=== PATIENT | female | born 1945 | race Caucasian/White ===

== ENCOUNTER 2017-02-14 13:17 | Outpatient (CLI) | payer MEDICARE, OTHER | END 2017-02-14 13:18 | disposition home or self-care (01) | DX: R07.9 Chest pain, unspecified (principal) ==

== ENCOUNTER 2017-02-18 08:43 | Outpatient (CLI) | payer MEDICARE, OTHER | END 2017-02-18 08:44 | disposition home or self-care (01) | DX: M85.89 Other specified disorders of bone density and structure, multiple sites (principal); N95.8 Other specified menopausal and perimenopausal disorders ==

== ENCOUNTER 2018-01-09 13:09 | Outpatient (CLI) | payer MEDICARE, OTHER ==
--- NOTE | 2018-01-09 16:56 | XRAY Report ---
PELVIS AND BILATERAL HIPS: 01/09/2018 HISTORY: Increased left hip pain with limited bilateral range of motion. COMPARISON: 04/06/2014 CT scan abdomen and pelvis reformatted images. FINDINGS: The hip joints are anatomically aligned bilaterally. There is no evidence of fracture or bone destruction. There is mild degenerative change of the hips with slight narrowing and acetabular spurring. Mild degenerative change of the sacroiliac joints. IMPRESSION: MILD DEGENERATIVE CHANGE OF THE HIPS WITHOUT SUPERIMPOSED ACUTE FINDINGS. TD: 01/09/2018 16:55 [facility]
== END 2018-01-09 13:10 | disposition home or self-care (01) ==
LOC: DI 13:09
PROVIDERS: ATTEND Registered Nurse
DX: M16.0 Bilateral primary osteoarthritis of hip (principal)
CPT/HCPCS: 73521

== ENCOUNTER 2018-08-11 09:05 | Outpatient (CLI) | payer MEDICARE, OTHER ==
--- NOTE | 2018-08-11 10:58 | XRAY Report ---
Reason: RT SHOULDER PAIN Procedure Date: 08/11/2018 Accession Number: [id number] / [id number] Procedure: XR - Shoulder 3 View RT CPT Code: FULL RESULT: EXAM: RIGHT SHOULDER RADIOGRAPHY EXAM DATE: 08/11/2018 09:14 AM. CLINICAL HISTORY: Right shoulder pain. COMPARISON: None. TECHNIQUE: 3 views. FINDINGS: Bones: Normal. No fracture or bone lesion. Joints: The glenohumeral and acromioclavicular joints are normal. Soft tissues: The visualized hemithorax is unremarkable. No soft tissue swelling. IMPRESSION: No fracture or dislocation. RADIA
== END 2018-08-11 09:06 | disposition home or self-care (01) ==
LOC: DI 09:05
PROVIDERS: ATTEND Nurse Practitioner Family
DX: M25.511 Pain in right shoulder (principal)

== ENCOUNTER 2019-04-19 09:34 | Outpatient (CLI) | payer MEDICARE, OTHER ==
--- NOTE | 2019-04-23 08:22 | DEXA Report ---
Reason: DISORDER OF BONE,UNSPECIFIED Procedure Date: 04/19/2019 Accession Number: [id number] / [id number] Procedure: DEX - Dexa Spine and/or Hip CPT Code: FULL RESULT: EXAM: Dexa Spine and/or Hip DATE: 04/19/2019 9:52 AM CLINICAL HISTORY: DISORDER OF BONE,UNSPECIFIED TECHNIQUE: Dual energy x-ray absorptiometry (DXA) was performed on a [employer] System. Regions measured are the AP Spine, femoral neck, and if needed forearm. COMPARISON: 02/18/2017. In accordance with the International Society for Clinical Densitometry (ISCD) guidelines, data from previous exams may be reanalyzed using current recommendations and techniques. This is done to allow a more accurate basis for comparison with the current study. FINDINGS: The data for the lumbar spine is as follows: BMD (g/cm/cm) T-SCORE Z-SCORE REGION L1 1.005 -1.0 0.9 L2 1.077 -1.0 0.9 L3 1.094 -0.9 1.1 L4 1.014 -1.6 0.4 TOTAL 1.046 -1.1 0.8 NOTE: All evaluable vertebrae are used for classification The data for the hip is as follows: BMD (g/cm/cm) T-SCORE Z-SCORE REGION Neck 0.900 -1.0 1.0 TOTAL 0.926 -0.6 1.2 NOTE: The femoral neck or total proximal femur, whichever is lowest, is used for classification. DXA RESULTS SUMMARY: Spine SCAN DATE AGE BMD CHANGE VS CHANGE VS PREVIOUS PREVIOUS % 4/19[birth year]2019 [age] 1[age]059 0.021 2.0 02/18/2017 71.8 1[age]038 * Denotes significant change at the 95% confidence level. Denotes dissimilar scan types or analysis methods. DXA RESULTS SUMMARY: Hip SCAN DATE AGE BMD CHANGE VS CHANGE VS PREVIOUS PREVIOUS % [birth year][age][birth year]2019 74.0 0[age]926 0.024 2.7 02[birth year]18[birth year]2017 71.8 0[age]902 * Denotes significant change at the 95% confidence level. Denotes dissimilar scan types or analysis methods. IMPRESSION: THE WHO CLASSIFICATION BASED ON THE INTERNATIONAL REFERENCE STANDARD IS OSTEOPENIA. THE FRACTURE RISK IS INCREASED. RECOMMENDATION: Patients with diagnosis of osteoporosis or osteopenia should have regular bone mineral density assessment. For those eligible for Medicare, routine testing is allowed once every 2 years. Testing frequency can be increased for patients who have rapidly progressing disease or for those who are receiving medical therapy to restore bone mass. COMMENT: World Health Organization (WHO) definitions for osteoporosis and osteopenia: NORMAL BMD: T-score at -1.0 or higher, fracture risk is low OSTEOPENIA BMD: T-score between -1.0 and -2.5, fracture risk is increased. OSTEOPOROSIS BMD: T-score at -2.5 or lower, fracture risk is high. National Osteoporosis Foundation recommends: 1. Obtain adequate dietary calcium (at least 1200 mg per day) and vitamin D (400-800 international units per day). 2. Participate, as appropriate, in regular weightbearing and muscle-strengthening exercise. 3. Avoid tobacco use and reduce alcohol and caffeine intake. 4. For more detailed information see the website at www.NOF.org.
== END 2019-04-19 09:35 | disposition home or self-care (01) ==
LOC: DI 09:34
PROVIDERS: ATTEND Physician Assistant
DX: M85.89 Other specified disorders of bone density and structure, multiple sites (principal)
CPT/HCPCS: 77080

== ENCOUNTER 2023-05-25 15:03 | Outpatient (CLI) | payer MEDICARE, OTHER ==
--- NOTE | 2023-05-25 15:45 | DEXA Report ---
PROCEDURE: Dexa Spine and/or Hip INDICATIONS: OSTEOPENIA TECHNIQUE: Dual energy x-ray absorptiometry (DXA) was performed on a [employer] System. Regions measur ed are the AP Spine, femoral neck, and if needed forearm. COMPARISON: DEXA, 04/19/2019. FINDINGS: Lumbar Spine: Bone Mineral Density 1.004 g/cm/cm,T score -1.5. Left Femoral Neck: Bone Mineral Density 0.827 g/cm/cm, T score is -1.5. Left Hip: Bone Mineral Density 0.878 g/cm/cm,T score -1.0. (T score greater or equal to -1.0: NORMAL) (T score from -1.1 to -2.4: OSTEOPENIA) (T score less than or equal to -2.5 to: OSTEOPOROSIS) Compared to last exam, the patient's bone density in lumbar spine and left hip has both decreased by 5.2%. Impression: 1. By WHO criteria, this patient has low bone density (osteopenia). 2. There is 5.2% decrease in the patient's bone density in lumbar spine and left hip since the last e xam. Patients with diagnosis of osteoporosis or osteopenia should have regular bone mineral density assess ment. For those eligible for Medicare, routine testing is allowed once every 2 years. Testing frequ ency can be increased for patients who have rapidly progressing disease or for those who are receivin g medical therapy to restore bone mass. Reviewed by: Rehana Aviles MD on 05/25/2023 3:44 PM PDT Approved by: Rehana Aviles MD on 05/25/2023 3:44 PM PDT Station ID: [id number]
== END 2023-05-25 15:04 | disposition home or self-care (01) ==
LOC: DI 15:03
PROVIDERS: ATTEND Registered Nurse
DX: M85.89 Other specified disorders of bone density and structure, multiple sites (principal)

== ENCOUNTER 2024-06-24 07:43 | Emergency (ER) | payer MEDICARE, OTHER ==
--- NOTE | 2024-06-24 07:51 | ED Physician Documentation ---
PD HPI FEMALE - Stated complaint Stated Complaint: UTI - Chief complaint Chief Complaint: UTI - History obtained from History obtained from: Patient - History of Present Illness Timing - onset: How many days ago (2) Timing - duration: Days (2) Timing - details: Gradual onset, Still present, Waxing and waning Associated symptoms: Dysuria, Urinary frequency. No: Vaginal discharge Similar symptoms before: Diagnosis (UTIs in the past, not frequent) Review of Systems Constitutional: denies: Fever Skin: denies: Rash, Lesions PD PAST MEDICAL HISTORY - Past Medical History Past Medical History: No - Past Surgical History Past Surgical History: No - Present Medications Home Medications: Ambulatory Orders Medication Instructions Recorded Confirmed Phenazopyridine HCl [Pyridium] 100 mg PO TID PRN #10 tablet 06/24/24 cephALEXin [Keflex] 500 mg PO TID #18 cap 06/24/24 - Allergies Allergies/Adverse Reactions: Allergies Allergy/AdvReac Type Severity Reaction Status Date / Time No Known Drug Allergies Allergy Verified 06/24/24 07:48 - Social History Does the pt smoke?: No Smoking Status: Never smoker PD ED PE NORMAL - Vitals Vital signs reviewed: Yes - General General: Alert and oriented X 3, No acute distress, Well developed/nourished - Abdomen Abdomen: Soft, Non tender - Female Female : Deferred - Back Back: No CVA TTP - Derm Derm: Normal color, Warm and dry Results - Labs Labs: Microbiology 06/24/24 07:54 Urine Culture - Preliminary Urine,Random Laboratory Tests 06/24/24 07:54 Urine Color BROWN Urine Clarity CLOUDY Urine pH 6.0 Ur Specific [place] 1.025 Urine Protein 100 H Urine Glucose (UA) NEGATIVE Urine Ketones NEGATIVE Urine Occult Blood LARGE H Urine Nitrite POSITIVE H Urine Bilirubin SMALL H Urine Urobilinogen 1 (NORMAL) Ur Leukocyte Esterase LARGE H Urine RBC TNTC H Urine WBC >25 H Ur Squamous Epith Cells FEW Squamous Urine Bacteria Moderate H Ur Microscopic Review INDICATED Urine Culture Comments INDICATED PD Medical Decision Making - ED course Complexity details: considered differential (symptoms of UTI and UA very c/w infection. Will treat and give meds for symptoms as well. ), d/w patient Departure - Departure Disposition: 01 Home, Self Care Clinical Impression: Urinary tract infection, Dysuria Condition: Stable Record reviewed to determine appropriate education?: Yes Instructions: ED UTI Cystitis Female Follow-Up: Paty Clark ARNP [Physician No Access] - Prescriptions: cephALEXin [Keflex] 500 mg PO TID #18 cap Phenazopyridine HCl [Pyridium] 100 mg PO TID PRN #10 tablet PRN Reason: Abdominal Pain Comments: Your symptoms certainly sound like a bladder infection and we treated that way. We will do a culture on the urine and that will result in a couple of days. Will call if we need to change the antibiotic choice based on that. Meanwhile we will start with cephalexin antibiotic which is effective typically about 95% of the time on bladder infections. You can add phenazopyridine to help with urinary symptoms over the next day or 2. This will numb the inside of the bladder and urethra and help a fair amount. I will turn your urine orange. You can also add Tylenol or ibuprofen if needed for discomfort. I would anticipate improvement over the next 2 to 3 days. Recheck if you have general increased symptoms such as fever, nausea, kidney pain or other concerns. Forms: PCP List Discharge Date/Time: 06/24/24 08:14
[2024-06-24 07:55] VITALS: BP 129/64; O2SAT 95
[2024-06-24] MEDS: PHENAZOPYRIDINE 100 MG TABLET PO STA (08:10)
[2024-06-24] MEDS: cephALEXin 250 MG CAPSULE PO STA (08:10)
[2024-06-24 08:18] LABS: BILIRUBIN,URINE SMALL (NEGATIVE); GLUCOSE, URINE (UA) NEGATIVE (NEGATIVE); KETONES,URINE (UA) NEGATIVE (NEGATIVE); LEUKOCYTE ESTERASE, URINE LARGE (NEGATIVE); NITRITE,URINE POSITIVE (NEGATIVE); OCCULT BLOOD,URINE LARGE (NEGATIVE); PROTEIN,URINE 100 mg/dL (NEGATIVE); UROBILINOGEN,URINE 1 (NORMAL) E.U./dL (NORMAL)
[2024-06-24 08:23] LABS: BACTERIA,URINE Moderate /HPF (None Seen); CLARITY,URINE CLOUDY (CLEAR); RBC,URINE TNTC /HPF (0-5); SQUAMOUS EPITHELIAL CELL,UR FEW Squamous (<= Few); WBC,URINE >25 /HPF (0-5)
--- NOTE | 2024-06-27 15:09 | ED Physician Documentation ---
ED Addendum - Addendum Addendum: 06/27/24 15:07 Had some side effects including shakiness and poor sleep last night she thinks possibly d/t cipro. Talked with her and rx bactrim ds 1 po bid #14 to ritchie kunz.
== END 2024-06-24 08:14 | disposition home or self-care (01) ==
LOC: ED 07:43
DX: N39.0 Urinary tract infection, site not specified (principal); B96.20 Unspecified Escherichia coli [E. coli] as the cause of diseases classified elsewhere; Z87.440 Personal history of urinary (tract) infections
CPT/HCPCS: 81001; 87077; 87086; 87181; 99283; A9270; 81003